=== PATIENT | female | born 1950 | race Caucasian/White ===

== ENCOUNTER → 2018-07-27 10:23 | Outpatient (CLI) | payer MEDICARE, OTHER, SELFPAY ==
[2015-12-21 09:53] VITALS: BMI 36.1
== END ==
PROVIDERS: Family Provider Internal Medicine; PCP Internal Medicine; Referring Provider Dermatology Pediatric Dermatology; Visit Provider Dermatology Pediatric Dermatology
DX: L63.8 Other alopecia areata (principal); R76.0 Raised antibody titer
CPT/HCPCS: 36415; 86038; 86235